=== PATIENT | female | born 1995 ===

== ENCOUNTER 2017-04-26 15:21 | Emergency (ER) | payer SELFPAY ==
[2017-04-26 15:22] VITALS: BP 138/76; PULSE 96; RESP 16; TEMP 37.1; O2SAT 100; BMI 32.1
[2017-04-26 16:04] LABS: Mucous, Urine 0 SEEN /hpf (<or=2+); Red Blood Cells-Urine 0 SEEN /hpf (0-5)
[2017-04-26 16:29] LABS: Color, Urine Yellow (Yellow); Glucose, Dipstick Normal (Normal); Ketone-Dipstick Negative (Negative); Leukocyte Esterase-Dipstick 25 /ul (Negative); Nitrite-Dipstick Positive (Negative); Occult Blood-Urine Negative /ul (Negative); Protein-Dipstick Negative (Negative); Specific Gravity, Urine 1.015 (1.002-1.030); Urine Bilirubin Dipstick Negative (Negative); Urine Clarity Sl. Cloudy (Clear); Urine Urobilinogen Normal (Normal)
--- NOTE | 2017-04-26 16:33 | ED.RN ---
pt called to go back to room; not present.
[2017-04-26 17:14] LABS: White Blood Cells 0-5 SEEN /hpf (0-5)
[2017-04-26 17:15] LABS: Bacteria 1+ /hpf (None Seen); Squamous Epithelial Cells - UA 0-5 SEEN /hpf (5-10)
== END 2017-04-26 17:14 | disposition left against medical advice (07) ==
PROVIDERS: Emergency Provider Emergency Medicine
DX: N39.0 Urinary tract infection, site not specified (principal)
CPT/HCPCS: 81001